=== PATIENT | female | born 1945 | race Caucasian/White ===

== ENCOUNTER 2018-02-07 18:23 | Emergency (ER) | payer OTHER ==
--- NOTE | 2018-02-07 18:46 | ED Physician Documentation ---
General Adult - HISTORIAN Historian: patient - HPI Stated Complaint: pain with swallowing Chief Complaint: General Adult Additional Information: Patient presents to ED via NH with a 6 day history of pain with swallowing. Patient states today she had pain when she swallowed chicken fried steak and she states it took a few minutes for the food to go down. She states the pain is a grabbing, cramping pain that lasts several minutes after swallowing. She states it has happened with liquids too. She denies shortness of breath, diaphoresis, nausea, vomiting or diarrhea. Onset: days ago (6) Timing: still present Further Comments: no - ROS CONST: denies: fever EYES/ENT: denies: sore throat CVS/RESP: chest pain. denies: shortness of breath GI/: denies: abdominal pain, vomiting, nausea, diarrhea MS/SKIN/LYMPH: denies: leg swelling NEURO/PSYCH: denies: headache, dizziness - PAST HX Past History: other (dementia, history of breast cancer) Other History: diabetes Type 2 Surgeries/Procedures: none Allergies/Adverse Reactions: Allergies Allergy/AdvReac Type Severity Reaction Status Date / Time No Known Drug Allergies Allergy Verified 02/07/18 18:49 Home Medications: Ambulatory Orders Medication Instructions Recorded Allopurinol 300 mg PO DAILY u2 12/07/12 Aspirin Ec 81 mg PO DAILY u2 12/07/12 Benztropine Mesylate 0.5 mg PO TID #60 u2 12/22/12 Acetaminophen [Acetaminophen Er] 650 mg PO Q8 u2 04/12/13 Tramadol HCl 100 mg PO TID u2 04/12/13 Anastrozole 1 mg PO DAILY u2 02/01/15 Calcium Carbonate/Vitamin D3 1 each PO DAILY u2 02/01/15 [Calcium 600 + Vit D 400 Tablet] Diclofenac Sodium 75 mg PO BID u2 02/01/15 Lisinopril 5Mg [Prinivil] 5 mg PO DAILY u2 02/01/15 Polyethylene Glycol 3350 [Miralax] 34 gm PO DAILY 02/01/15 Rosuvastatin Calcium [Crestor] 5 mg PO HS u2 02/01/15 Solifenacin Succinate [Vesicare] 10 mg PO DAILY u2 02/01/15 Alendronate Sodium [Fosamax] 70 mg PO WEEKLY AT 0600 02/07/18 B-Complex with Vitamin C 1 tab PO D 02/07/18 [B-Complex with C] Divalproex Sodium [Depakote] 250 mg PO TID 02/07/18 [place]-3 Fatty Acids/Fish Oil [Fish 1,000 mg PO D 02/07/18 Oil 1,000 mg Capsule] Omeprazole 20 mg PO 0700 02/07/18 Pantoprazole Sodium [Protonix] 40 mg PO 0700 30 Days tablet. 02/07/18 - SOCIAL HX Smoking History: non-smoker Alcohol Use: none - FAMILY HX Family History: No - REVIEWED ASSESSMENTS Nursing Assessment Reviewed: Yes Vitals Reviewed: Yes Progress - EKG/XRAY/CT EKG: NSR (94 bpm No evidence of ischemia) ED Results Lab/Radiology - Radiology Radiology Impressions: PA and lateral chest CLINICAL HISTORY: Difficulty swallowing FINDINGS: Examination of the chest in PA and lateral views with no prior film for comparison demonstrates the lungs to be clear. Cardiovascular and mediastinal silhouettes are within normal limits. The aorta is atherosclerotic. Monitor leads superimpose the chest. IMPRESSION: Aortic atherosclerosis. No active disease. Electronically signed on Feb 07, 2018 7:57:30 PM CDT by: Ryan Steele General Adult Physical Exam - PHYSICAL EXAM GENERAL APPEARANCE: no distress EENT: ISHAN NECK: supple RESPIRATORY: no resp distress, chest non-tender, breath sounds normal CVS: reg rate & rhythm, heart sounds normal ABDOMEN: soft, no distension, non-tender RECTAL: deferred BACK: no CVA tenderness SKIN: warm/dry, normal color EXTREMITIES: non-tender NEURO: oriented X3 Discharge Clincal Impression: Esophageal spasm Prescriptions: Pantoprazole Sodium [Protonix] 40 mg PO 0700 30 Days tablet. Referrals: Navdeep Galvez MD [Primary Care Provider] - 2 Days Additional Instructions: Call [phone] to make an appointment with Dr. Yuan, [employer]. Condition: Stable Disposition: 04 [facility] Decision to Admit: NO Date of Decison to Admit: 02/07/18 Decision Time: 20:27
[2018-02-07] MEDS ORDERED: MAG HYDROX/ALUMINUM HYD/SIMETH 30 ML UDC PO ONE (18:48)
[2018-02-07] MEDS ORDERED: PANTOPRAZOLE SODIUM INJ. 40 MG VIAL ONE (19:20)
[2018-02-07] MEDS ORDERED: 0.9 % SODIUM CHLORIDE 100 ML IV ONE (19:22)
[2018-02-07 19:54] LABS: eGFR (Non-African) > 60
[2018-02-07 19:55] LABS: MEAN CORPUSCULAR HEMOGLOBIN 30.3 pg (28.0-34.0)
[2018-02-07 20:51] VITALS: BP 116/60
--- NOTE | 2018-02-08 06:47 | Diagnostic Imaging Report ---
DEL ROSARIO [facility] [address] [facility] [address] [address] Report Submission Date: Feb 07, 2018 7:57:30 PM CDT Patient Study Name: CLAY BARRIGA Date: Feb 07, 2018 7:30:58 PM CDT Modality Type: DX Gender: F Description: CHEST : 47 Institution: [facility] Physician: DEL ROSARIO PA and lateral chest CLINICAL HISTORY: Difficulty swallowing FINDINGS: Examination of the chest in PA and lateral views with no prior film for comparison demonstrates the lungs to be clear. Cardiovascular and mediastinal silhouettes are within normal limits. The aorta is atherosclerotic. Monitor leads superimpose the chest. IMPRESSION: Aortic atherosclerosis. No active disease. Electronically signed on Feb 07, 2018 7:57:30 PM CDT by: Ryan MOSLEY
[2018-02-08] MEDS ORDERED: PANTOPRAZOLE SODIUM 40 MG in 0.9 % SODIUM CHLORIDE 50 ML IV ONE (18:50)
== END 2018-02-07 20:40 ==
LOC: ED 18:23
DX: K22.4 Dyskinesia of esophagus (principal)
CPT/HCPCS: 71046; 80053; 84484; 85025; 96365; S1016